=== PATIENT | male | born 1955 | race Caucasian/White ===

== ENCOUNTER 2022-01-10 13:39 | Outpatient (CLI) | payer MEDICARE, OTHER, SELFPAY ==
--- NOTE | ~2022-01-10 | US_ITS ---
EXAMINATION: US art doppler w press LE BI DATE: 01/10/2022 15:43 INDICATION: Bilateral lower limb pain TECHNIQUE: Segmental pressures and plethysmographic and Doppler waveforms of the brachial and lower e xtremity arteries were obtained. COMPARISON: None. FINDINGS: Right and left brachial artery pressures of 199 mm Hg and 205 mm Hg, respectively, are concordant (no rmal difference <= 30 mmHg). The right and left high-thigh pressure indices were unable to be obtaine d due to inability to occlude the vessels (normal > 1.2). The right ankle-brachial index (SIMON) is 1.06 (normal >= 0.9-1). The right great toe-brachial index (T BI) is 0.68 (normal >= 0.6-0.8). Arterial waveforms are biphasic with brisk systolic upstrokes throug hout the arteries of the right lower limb. The left SIMON was unable to be obtained due to inability to occlude the vessels at the left ankle. The left TBI is 0.66. Arterial waveforms are biphasic with brisk systolic upstrokes throughout the arter ies of the left lower limb. IMPRESSION: 1. Normal TBI's bilaterally. No significant occlusive disease. Reviewed, dictated and finalized at location B.
--- NOTE | ~2022-01-10 | US_ITS ---
EXAMINATION: US venous doppler [facility] DATE: 01/10/2022 15:44 INDICATION: Bilateral lower limb swelling. Left lower limb pain. TECHNIQUE: Grayscale ultrasound images without and with compression and Doppler ultrasound images of the bilateral lower extremity veins were obtained. COMPARISON: None. FINDINGS: The visualized portions of right common femoral vein, profunda (deep) femoral vein, femoral vein, pop liteal vein, posterior tibial veins, peroneal veins, gastrocnemius vein and greater saphenous vein ou tflow are patent. The visualized portions of left common femoral vein, profunda femoral vein, femoral vein, popliteal v ein, posterior tibial veins, peroneal veins, gastrocnemius vein and greater saphenous vein outflow ar e patent. IMPRESSION: 1. No deep venous thrombosis in either lower limb. Reviewed, dictated and finalized at location B.
== END 2022-01-10 13:40 | disposition home or self-care (01) ==
PROVIDERS: PCP Family Medicine Sports Medicine; Visit Provider Podiatrist Foot & Ankle Surgery
DX: I73.89 Other specified peripheral vascular diseases (principal); R22.43 Localized swelling, mass and lump, lower limb, bilateral
CPT/HCPCS: 93923; 93970